=== PATIENT | male | born 1995 | race Caucasian/White ===

== ENCOUNTER 2024-04-04 18:39 | Emergency (ER) | payer SELFPAY ==
[2024-04-04] MEDS ORDERED: Lidocaine 4% Patch ONE (18:53)
[2024-04-04] MEDS ORDERED: HYDROcodone/Acetaminophen 5/325 mg Tablet ONE (18:54)
[2024-04-04] MEDS ORDERED: Ketorolac Tromethamine 60 MG/2 ML VIAL ONE (18:54)
== END 2024-04-04 19:20 | disposition home or self-care (01) ==
LOC: NAV ERS 18:39
DX: S39.012A Strain of muscle, fascia and tendon of lower back, initial encounter (principal); X50.0XXA Overexertion from strenuous movement or load, initial encounter
CPT/HCPCS: 96372; 99283; J1885